=== PATIENT | male | born 1940 | race Caucasian/White ===

== ENCOUNTER 2021-05-20 13:10 | Inpatient (IN) | payer MEDICARE, BC ==
[2021-05-20] MEDS ORDERED: Aspirin 81 MG Tab.Chew PO ONE (13:20)
--- NOTE | 2021-05-20 13:57 | PCM.EKG ---
#1 Interpretation EKG Date: 05/20/21 Time: 13:51 Rhythm: NSR Rate (Beats/Min): 69 [place]: Normal P-Wave: Present QRS: Normal ST-T: Normal QT: Normal Comparison: No Change (10/11/15) EKG Interpretation Comments: Sinus Rhythm with unchanged lateral TWI
--- NOTE | 2021-05-20 13:58 | CR ---
CHEST 1 VIEW AP INDICATION: Seizure. IMPRESSION: Normal heart size and vascular pattern. Lungs are clear of focal opacities. No pneumothorax or pleural abnormality. Dictated by Shemar Bolanos MD @ 05/20/2021 1:56:50 PM (Electronically Signed)
[2021-05-20 14:18] LABS: BLOOD UREA NITROGEN,BUN 37 mg/dL (7.0-18.0); CHLORIDE,CL 99 mmol/L (98-107); GLUCOSE RANDOM 113 mg/dL (74-106); POTASSIUM,K 4.5 mmol/L (3.5-5.1); SODIUM,NA 133 mmol/L (136-148)
[2021-05-20] MEDS ORDERED: Magnesium Sulfate/Water 2 GM in Premix Bag 1 BAG IV ONE (14:24)
[2021-05-20 14:37] LABS: CORONAVIRUS COVID-19 NAA POSITIVE (NEGATIVE); INFLUENZA A NAA NEGATIVE (NEGATIVE); INFLUENZA B NAA NEGATIVE (NEGATIVE); RESPIRATORY SYNCYTIAL VIR NAA NEGATIVE (NEGATIVE)
[2021-05-20 14:37] LABS: CARBON DIOXIDE,CO2 22.5 mmol/L (21.0-32.0)
--- NOTE | 2021-05-20 15:11 | CT ---
INDICATION: syncope, possible seizure COMPARISON: none TECHNIQUE: A CT volumetric acquisition was performed of the brain without IV contrast. Please note that all CT scans at this facility use dose modulation, iterative reconstruction, and/or weight-based dosing when appropriate to reduce radiation dose to as low as reasonably achievable. FINDINGS: No intracranial hemorrhage, mass or mass effect. Mild generalized cortical atrophy. No hydrocephalus or midline shift incidental prominence of the calcified choroid plexus. Vascular calcifications. Mild bilateral sinus disease. No fracture. IMPRESSION: No acute intracranial pathology. Please note that all CT scans at this facility use dose modulation, iterative reconstruction, and/or weight-based dosing when appropriate to reduce radiation dose to as low as reasonably achievable. Dictated by Alex Brown MD @ 05/20/2021 3:09:40 PM (Electronically Signed)
--- NOTE | 2021-05-20 15:16 | EDM.PDOC ---
ED HPI GENERAL MEDICAL PROBLEM - General Chief Complaint: General Stated Complaint: EMS Time Seen by Provider: 05/20/21 13:16 - History of Present Illness INITIAL COMMENTS - FREE TEXT/NARRATIVE: CHIEF COMPLAINT(S): Fall HISTORY OF PRESENT ILLNESS: This is a 80-year-old man with a past medical history of benign vertigo, BPH, hyperlipidemia who comes to the emergency department with a chief complaint of fall. The patient states that he was walking out to his mailbox when he suddenly fell and felt dizzy. He denies any head injury or loss of consciousness. States that he fell onto his back but denies any back pain, urinary incontinence, saddle anesthesia, or bowel incontinence. He denies any preceding chest pain but states that over the last 1 week he has been feeling short of breath when walking. He denies any lower extremity edema, recent travel, recent surgery or prior history of DVT or PE. He denies any history of aortic aneurysm. He denies any history of COPD or asthma. His who is at bedside states that over the last week he has been having trouble with walking where he gets short of breath, appears pale and is having an intermittent cough which is productive of sputum. She states that he has not had any fever. The patient denies any other symptoms. Patient states that after the fall he was ambulatory. The at bedside stated that he appeared weak and was shaking a little bit but was alert during this time. REVIEW OF SYSTEMS: Constitutional: Denies fever, chills. Eyes: Denies eye pain Ears, Nose, Mouth, & Throat: Denies earache Cardiovascular: Positive for dizziness. Denies chest pain Respiratory: Positive for exertional dyspnea and productive cough Gastrointestinal: Denies Nausea, vomiting, diarrhea, hematochezia. Genitourinary: Denies hematuria Skin:Denies a rash MSK: Denies joint pain Neurological: Denies blurred vision, numbness, tingling, weakness Psychiatric: Denies depression PAST MEDICAL HISTORY: As per history of present illness and as reviewed below otherwise noncontributory. SURGICAL HISTORY: As per history of present illness and as reviewed below otherwise noncontributory. SOCIAL HISTORY: As per history of present illness and as reviewed below oth erwise noncontributory. FAMILY HISTORY: As per history of present illness and as reviewed below otherwise noncontributory. EXAMINATION OF ORGAN SYSTEMS/BODY AREAS: Constitutional: Blood pressure is 119/51, heart rate 78, respiratory rate 20 with an oxygen saturation of 93% on room air. Temperature 36.4 General: Elderly man who does not appear to be in acute distress Psychiatric: Appropriate mood and affect. Eyes: No scleral icterus or conjunctival erythema pupils are equal round and reactive to light. Extraocular movements intact. No vertical horizontal nystagmus. ENMT: Moist mucous membranes. No pharyngeal erythema no blood in the oropharynx. No missing or chipped teeth. No stridor, drooling, trismus cardiovascular: Regular, rate, and rhythm. No gallops, murmurs, or rubs. Jung ateral upper extremity pulses symmetric and intact. No peripheral edema. No JVD. Respiratory: Lungs clear to auscultation bilaterally. No wheezes, rales, or rhonchi. Gastrointestinal: Soft, non-tender, non-distended. Normoactive bowel sounds Genitourinary: No suprapubic tenderness Musculoskeletal: Normal range of motion. Skin: No lesions or abrasions. Neurological: Alert, GCS 15 MEDICAL DECISION MAKING AND COURSE IN THE ED WITH INTERPRETATION/REVIEW OF DIAGNOSTIC STUDIES: This is a 80-year-old man with a past medical history of benign vertigo, BPH, hyperlipidemia who comes to the emergency department after mechanical fall with 1 week of productive cough, exertional dyspnea who is borderline hypoxic on room air. At this time I did observe the patient in cardiac monitoring at this time did reveal sinus rhythm and pulse oximetry with good waveform was approximately 90% on room air. We will provide the patient with supplemental oxygenation. Given his history I did obtain a screening EKG which was unremarkable. At this time we will undergo a cardiac work-up. We will also obtain a CT head given that the patient is on Plavix. There is no overt signs of trauma on the patient's head however given the shaking we will also evaluate for tumor or mass. Given the hypoxia differential does include PE however this is lower on the differential. The patient is Covid vaccinated however it has been since September. We will obtain a Covid and influenza swab. We will obtain a CT angiogram of the chest to evaluate for pulmonary embolism and obtain a chest x-ray. DDx: Community-acquired pneumonia, COVID-19, ACS, pulmonary embolism Laboratory: CBC is unremarkable. INR is normal. CMP reveals elevated BUN at 37 and creatinine of 2.2 which is improved from prior. Hyponatremia at 133. There is also hypomagnesemia at 1.7 otherwise unremarkable. Troponin is negative. CPK is normal. TSH is normal. Covid is positive. Influenza and RSV are negative. Given the patient's GFR there is no ability to obtain a CT angiogram of the chest. Given the patient is Covid positive I do believe that his hypoxia and exertional dyspnea is likely secondary to this. We will cancel the CT angiogram. Patient has no other signs of PE including JVD or lower extremity edema. The radiological images were viewed by myself along with reading the report from the radiologist. Chest x-ray does not reveal an acute cardiopulmonary process. CT head without contrast does not reveal any acute intracranial abnormality. The patient was intermittently requiring supplemental oxygenation. At this time I did discuss admission with the patient. He was amenable to this plan. I contacted Dr. Garvin who accepted the patient for admission DISPOSITION: The patient sedated to the hospital in stable condition CONDITION: Fair PROCEDURES: Cardiac monitoring interpretation, pulse oximetry interpretation FINAL IMPRESSION(S)/DIAGNOSES: 1. Acute hypoxic respiratory failure requiring nasal cannula secondary to COVID-19 Critical Care Procedure Note Authorized and performed by: Papo Teixeira M.D. Critical Care Time: 40 minutes Due to a high probability of clinically significant, life threatening deterioration, the patient required my highest level of preparedness to intervene emergently and I personally spent this critical care time directly and personally managing the patient. This critical care time included obtaining a history, examining the patient, pulse oximetry; ordering and review of studies; arranging urgent treatment with development of a management plan; evaluation of a patients reponse to treatment; frequent assessment; and discussions with other providers. This critical care time was performed to assess and manage the high probability of imminent, life threatening deterioration that could result in multiorgan failure. It was exclusive of separate billable procedures and treating other patients. Please see MDM section and rest of the note for further information on patient assessment and treatment. Please see RESHMA section and rest of the note for further information on patient assessment and treatment. Papo Teixeira M.D. - Related Data Allergies Allergy/AdvReac Type Severity Reaction Status Date / Time No Known Allergies Allergy Verified 05/20/21 13:22 Home Meds: Home Meds Allopurinol [Zyloprim] 300 mg PO DAILY 10/11/15 [History] Clopidogrel [Plavix] 75 mg PO DAILY 10/11/15 [History] Cyanocobalamin (Vitamin B-12) [Vitamin B-12] 250 mcg PO DAILY 10/11/15 [History] Dextran 70/Hypromellose [Artificial Tears] 1 drop OP DAILY 10/11/15 [History] Gemfibrozil 600 mg PO BID 10/11/15 [History] Moexipril [Univasc] 7.5 mg PO ACBREAKFAST 10/11/15 [History] Multivitamin [Multi-Vitamin Daily] 1 each PO DAILY 10/11/15 [History] Tamsulosin [Flomax] 0.8 mg PO BEDTIME 10/11/15 [History] atorvaSTATin [Lipitor] 10 mg PO BEDTIME 10/11/15 [History] Metoprolol Succinate [Toprol Xl] 75 mg PO DAILY 05/20/21 [History] Albuterol/Ipratropium [Combivent Respimat] 1 gm INH Q6H PRN #1 inhaler 05/22/21 [Rx] Past Medical History HEENT History: Reports: Cataract Cardiovascular History: Reports: High Cholesterol, Hypertension Respiratory History: Reports: None Gastrointestinal History: Reports: GERD Genitourinary History: Reports: None Musculoskeletal History: Reports: Back Pain, Chronic Neurological History: Reports: None Psychiatric History: Reports: None Endocrine/Metabolic History: Reports: None Hematologic History: Reports: None Immunologic History: Reports: None Oncologic (Cancer) History: Reports: None Dermatologic History: Reports: None - Infectious Disease History Infectious Disease History: Reports: Chicken Pox, Measles, Mumps - Past Surgical History HEENT Surgical History: Reports: Cataract Surgery, Tonsillectomy Cardiovascular Surgical History: Reports: None GI Surgical History: Reports: Appendectomy Social & Family History - Family History Family Medical History: No Pertinent Family History - Tobacco Use Second Hand Smoke Exposure: No - Caffeine Use Caffeine Use: Reports: None - Recreational Drug Use Recreational Drug Use: No ED ROS GENERAL - Review of Systems Review Of Systems: See Below ED EXAM, GENERAL - Physical Exam Exam: See Below Course - Vital Signs Last Recorded V/S: Last Vital Signs Temp 36.2 C 05/22/21 08:22 Pulse 75 05/22/21 08:28 Resp 16 05/22/21 08:22 BP 146/78 H 05/22/21 08:28 Pulse Ox 95 05/22/21 08:22 - Orders/Labs/Meds Labs: Laboratory Tests 05/20/21 05/20/21 05/20/21 Range/Units 13:30 13:38 13:38 WBC 4.56 (4.0-11.0) K/uL RBC 3.87 L (4.50-5.90) M/uL Hgb 13.2 (13.0-17.0) g/dL Hct 38.4 (38.0-50.0) % MCV 99.2 H (80.0-98.0) fL MCH 34.1 H (27.0-32.0) pg MCHC 34.4 (31.0-37.0) g/dL RDW Std Deviation 49.1 (28.0-62.0) fl RDW Coeff of Giovanni 14 (11.0-15.0) % Plt Count 146 L (150-400) K/uL MPV 10.90 (7.40-12.00) fL Neut % (Auto) 80.1 H (48.0-80.0) % Lymph % (Auto) 11.8 L (16.0-40.0) % Villalba % (Auto) 7.9 (0.0-15.0) % Eos % (Auto) 0.0 (0.0-7.0) % Baso % (Auto) 0.2 (0.0-1.5) % Neut # (Auto) 3.7 (1.4-5.7) K/uL Lymph # (Auto) 0.5 L (0.6-2.4) K/uL Villalba # (Auto) 0.4 (0.0-0.8) K/uL Eos # (Auto) 0.0 (0.0-0.7) K/uL Baso # (Auto) 0.0 (0.0-0.1) K/uL Nucleated RBC % 0.0 /100WBC Nucleated RBCs # 0 K/uL ESR (0-19) mm/hr INR 1.07 Sodium (136-148) mmol/L Potassium (3.5-5.1) mmol/L Chloride (98-107) mmol/L Carbon Dioxide (21.0-32.0) mmol/L BUN (7.0-18.0) mg/dL Creatinine (0.8-1.3) mg/dL Est Cr Clr Drug Dosing mL/min Estimated GFR (MDRD) ml/min Glucose (74-106) mg/dL Lactic Acid (0.4-2.0) mmol/L Calcium (8.5-10.1) mg/dL Magnesium (1.8-2.4) mg/dL Total Bilirubin (0.2-1.0) mg/dL AST (15-37) IU/L ALT (14-63) IU/L Alkaline Phosphatase (46-116) U/L Creatine Kinase (26-308) U/L Troponin I (0.000-0.056) ng/mL C-Reactive Protein (0.00-0.90) mg/dL Total Protein (6.4-8.2) g/dL Albumin (3.4-5.0) g/dL Globulin (2.6-4.0) g/dL Albumin/Globulin Ratio (0.9-1.6) TSH, Ultra Sensitive (0.36-3.74) uIU/mL Urine Color Urine Appearance Urine pH (5.0-8.0) Ur Specific Christmas (1.001-1.035) Urine Protein (NEGATIVE) mg/dL Urine Glucose (UA) (NEGATIVE) mg/dL Urine Ketones (NEGATIVE) mg/dL Urine Occult Blood (NEGATIVE) Urine Nitrite (NEGATIVE) Urine Bilirubin (NEGATIVE) Urine Urobilinogen (<2.0) EU/dL Ur Leukocyte Esterase (NEGATIVE) Urine RBC (0-2/HPF) Urine WBC (0-5/HPF) Ur Epithelial Cells (NONE-FEW) Urine Bacteria (NEGATIVE) Ethyl Alcohol mg/dL Influenza Type A RNA NEGATIVE (NEGATIVE) RSV RNA (INAAT) NEGATIVE (NEGATIVE) Influenza Type B RNA NEGATIVE (NEGATIVE) SARS-CoV-2 RNA (ESTEFANÍA) POSITIVE H (NEGATIVE) 05/20/21 05/20/21 05/20/21 Range/Units 13:38 13:38 13:38 WBC (4.0-11.0) K/uL RBC (4.50-5.90) M/uL Hgb (13.0-17.0) g/dL Hct (38.0-50.0) % MCV (80.0-98.0) fL MCH (27.0-32.0) pg MCHC (31.0-37.0) g/dL RDW Std Deviation (28.0-62.0) fl RDW Coeff of Giovanni (11.0-15.0) % Plt Count (150-400) K/uL MPV (7.40-12.00) fL Neut % (Auto) (48.0-80.0) % Lymph % (Auto) (16.0-40.0) % Villalba % (Auto) (0.0-15.0) % Eos % (Auto) (0.0-7.0) % Baso % (Auto) (0.0-1.5) % Neut # (Auto) (1.4-5.7) K/uL Lymph # (Auto) (0.6-2.4) K/uL Villalba # (Auto) (0.0-0.8) K/uL Eos # (Auto) (0.0-0.7) K/uL Baso # (Auto) (0.0-0.1) K/uL Nucleated RBC % /100WBC Nucleated RBCs # K/uL ESR 37 H (0-19) mm/hr INR Sodium 133 L (136-148) mmol/L Potassium 4.5 (3.5-5.1) mmol/L Chloride 99 (98-107) mmol/L Carbon Dioxide 22.5 (21.0-32.0) mmol/L BUN 37 H (7.0-18.0) mg/dL Creatinine 2.2 H (0.8-1.3) mg/dL Est Cr Clr Drug Dosing 25.05 mL/min Estimated GFR (MDRD) 28.8 ml/min Glucose 113 H (74-106) mg/dL Lactic Acid 0.7 (0.4-2.0) mmol/L Calcium 8.7 (8.5-10.1) mg/dL Magnesium 1.7 L (1.8-2.4) mg/dL Total Bilirubin 0.5 (0.2-1.0) mg/dL AST 29 (15-37) IU/L ALT 22 (14-63) IU/L Alkaline Phosphatase 81 (46-116) U/L Creatine Kinase 79 (26-308) U/L Troponin I < 0.050 (0.000-0.056) ng/mL C-Reactive Protein (0.00-0.90) mg/dL Total Protein 7.3 (6.4-8.2) g/dL Albumin 3.1 L (3.4-5.0) g/dL Globulin 4.2 H (2.6-4.0) g/dL Albumin/Globulin Ratio 0.7 L (0.9-1.6) TSH, Ultra Sensitive 0.75 (0.36-3.74) uIU/mL Urine Color Urine Appearance Urine pH (5.0-8.0) Ur Specific Christmas (1.001-1.035) Urine Protein (NEGATIVE) mg/dL Urine Glucose (UA) (NEGATIVE) mg/dL Urine Ketones (NEGATIVE) mg/dL Urine Occult Blood (NEGATIVE) Urine Nitrite (NEGATIVE) Urine Bilirubin (NEGATIVE) Urine Urobilinogen (<2.0) EU/dL Ur Leukocyte Esterase (NEGATIVE) Urine RBC (0-2/HPF) Urine WBC (0-5/HPF) Ur Epithelial Cells (NONE-FEW) Urine Bacteria (NEGATIVE) Ethyl Alcohol < 3.0 mg/dL Influenza Type A RNA (NEGATIVE) RSV RNA (INAAT) (NEGATIVE) Influenza Type B RNA (NEGATIVE) SARS-CoV-2 RNA (ESTEFANÍA) (NEGATIVE) 05/20/21 05/20/21 Range/Units 13:38 13:52 WBC (4.0-11.0) K/uL RBC (4.50-5.90) M/uL Hgb (13.0-17.0) g/dL Hct (38.0-50.0) % MCV (80.0-98.0) fL MCH (27.0-32.0) pg MCHC (31.0-37.0) g/dL RDW Std Deviation (28.0-62.0) fl RDW Coeff of Giovanni (11.0-15.0) % Plt Count (150-400) K/uL MPV (7.40-12.00) fL Neut % (Auto) (48.0-80.0) % Lymph % (Auto) (16.0-40.0) % Villalba % (Auto) (0.0-15.0) % Eos % (Auto) (0.0-7.0) % Baso % (Auto) (0.0-1.5) % Neut # (Auto) (1.4-5.7) K/uL Lymph # (Auto) (0.6-2.4) K/uL Villalba # (Auto) (0.0-0.8) K/uL Eos # (Auto) (0.0-0.7) K/uL Baso # (Auto) (0.0-0.1) K/uL Nucleated RBC % /100WBC Nucleated RBCs # K/uL ESR (0-19) mm/hr INR Sodium (136-148) mmol/L Potassium (3.5-5.1) mmol/L Chloride (98-107) mmol/L Carbon Dioxide (21.0-32.0) mmol/L BUN (7.0-18.0) mg/dL Creatinine (0.8-1.3) mg/dL Est Cr Clr Drug Dosing mL/min Estimated GFR (MDRD) ml/min Glucose (74-106) mg/dL Lactic Acid (0.4-2.0) mmol/L Calcium (8.5-10.1) mg/dL Magnesium (1.8-2.4) mg/dL Total Bilirubin (0.2-1.0) mg/dL AST (15-37) IU/L ALT (14-63) IU/L Alkaline Phosphatase (46-116) U/L Creatine Kinase (26-308) U/L Troponin I (0.000-0.056) ng/mL C-Reactive Protein 7.90 H (0.00-0.90) mg/dL Total Protein (6.4-8.2) g/dL Albumin (3.4-5.0) g/dL Globulin (2.6-4.0) g/dL Albumin/Globulin Ratio (0.9-1.6) TSH, Ultra Sensitive (0.36-3.74) uIU/mL Urine Color YELLOW Urine Appearance HAZY Urine pH 6.0 (5.0-8.0) Ur Specific Christmas 1.020 (1.001-1.035) Urine Protein TRACE H (NEGATIVE) mg/dL Urine Glucose (UA) NEGATIVE (NEGATIVE) mg/dL Urine Ketones NEGATIVE (NEGATIVE) mg/dL Urine Occult Blood TRACE-INTACT H (NEGATIVE) Urine Nitrite NEGATIVE (NEGATIVE) Urine Bilirubin SMALL H (NEGATIVE) Urine Urobilinogen 0.2 (<2.0) EU/dL Ur Leukocyte Esterase NEGATIVE (NEGATIVE) Urine RBC 0-2 (0-2/HPF) Urine WBC 0-1 (0-5/HPF) Ur Epithelial Cells RARE (NONE-FEW) Urine Bacteria FEW (NEGATIVE) Ethyl Alcohol mg/dL Influenza Type A RNA (NEGATIVE) RSV RNA (INAAT) (NEGATIVE) Influenza Type B RNA (NEGATIVE) SARS-CoV-2 RNA (ESTEFANÍA) (NEGATIVE) Meds: Medications Discontinued Medications Generic Name Dose Route Start Last Admin Trade Name Freq PRN Reason Stop Dose Admin Albuterol/Ipratropium 1 gm 05/20/21 20:49 05/21/21 13:34 Albuterol/Ipratropium 4 Gm Inhalation [place] INH 1 puff Q6H PRN Administration Dyspnea Allopurinol 300 mg 05/21/21 09:00 05/22/21 08:26 Allopurinol 300 Mg Tab PO 300 mg DAILY LILIANA Administration Aspirin 324 mg 05/20/21 13:20 05/20/21 14:07 Aspirin 81 Mg Tab.Chew PO 05/20/21 13:21 324 mg ONETIME ONE Administration Atorvastatin Calcium 10 mg 05/20/21 21:00 05/21/21 20:39 Atorvastatin 10 Mg Tab PO 10 mg BEDTIME LILIANA Administration Benzonatate 100 mg 05/20/21 20:50 05/21/21 13:32 Benzonatate 100 Mg Cap PO 100 mg Q6H PRN Administration Cough Calcium Carbonate/Glycine 1,000 mg 05/21/21 04:18 Calcium Carbonate 500 Mg Tab.Chew PO Q8HR PRN Indigestion Clopidogrel Bisulfate 75 mg 05/21/21 09:00 05/22/21 08:26 Clopidogrel 75 Mg Tab PO 75 mg DAILY LILIANA Administration Dexamethasone 6 mg 05/20/21 15:34 05/20/21 15:51 Dexamethasone 4 Mg Tab PO 05/20/21 15:35 6 mg ONETIME ONE Administration Dexamethasone 6 mg 05/21/21 16:30 05/21/21 16:37 Dexamethasone 4 Mg Tab PO 6 mg Q24H LILIANA Administration Enoxaparin Sodium 40 mg 05/20/21 16:30 05/21/21 16:37 Enoxaparin 40 Mg/0.4 Ml Syringe SUBCUT 40 mg Q24H LILIANA Administration Gemfibrozil 600 mg 05/20/21 21:00 05/22/21 08:27 Gemfibrozil 600 Mg Tab PO 600 mg BID LILIANA Administration Magnesium Sulfate 2 gm/ Premix 50 mls @ 12.5 mls/hr 05/20/21 14:24 05/20/21 14:47 IV 05/20/21 18:23 12.5 mls/hr ONETIME ONE Administration Remdesivir 200 mg/ Sodium 250 mls @ 250 mls/hr 05/20/21 15:35 05/20/21 16:26 Chloride IV 05/20/21 15:36 250 mls/hr ONETIME ONE Administration Remdesivir 100 mg/ Sodium 100 mls @ 100 mls/hr 05/21/21 16:30 05/21/21 16:37 Chloride IV 05/24/21 17:29 100 mls/hr Q24H LILIANA Administration Metoprolol Succinate 75 mg 05/21/21 09:00 05/22/21 08:28 Metoprolol Succinate 50 Mg Tab.Er PO 75 mg DAILY LILIANA Administration Moexipril HCl 7.5 mg 05/21/21 07:30 05/22/21 07:00 Moexipril 15 Mg Tab PO 7.5 mg ACBREAKFAST LILIANA Administration Multivitamins/Minerals/Vitamin C 1 tab 05/21/21 09:00 05/22/21 08:29 Multivitamin Tab PO Not Given DAILY LILIANA Tamsulosin HCl 0.8 mg 05/20/21 21:00 05/21/21 20:39 Tamsulosin 0.4 Mg Cap.Er PO 0.8 mg BEDTIME LILIANA Administration Departure - Departure Time of Disposition: 15:50 Disposition: Admitted As Inpatient 64 Clinical Impression: Hypoxia, COVID - Discharge Information Sepsis Event Note (ED) - Evaluation Sepsis Screening Result: No Definite Risk
[2021-05-20] MEDS ORDERED: Dexamethasone 4 MG Tab PO ONE (15:34)
[2021-05-20] MEDS ORDERED: REMDESIVIR 200 MG in Sodium Chloride 0.9% 250 ML IV ONE (15:35)
--- NOTE | 2021-05-20 16:29 | PCM.HP.2 ---
H&P History of Present Illness - General Date of Service: 05/20/21 Admit Problem/Dx: Admission Diagnosis/Problem Admission Diagnosis/Problem Hypoxia - History of Present Illness Initial Comments - Free Text/Narative: 80 yo male with pmh of CKD, HTN, carotid artery stenosis who presents with one week history of cough and shortness of breath. Patient has reported more fatigue and he fell at home. He reports receiving th Ata and Ata vaccine in December. He is requiring 2 L NC to keep sats above 90%. He tested positive for COVID. CXR is clear. - Related Data Allergies/Adverse Reactions: Allergies Allergy/AdvReac Type Severity Reaction Status Date / Time No Known Allergies Allergy Verified 05/20/21 13:22 Home Medications: Home Meds Allopurinol [Zyloprim] 300 mg PO DAILY 10/11/15 [History] Aspirin [Halfprin] 81 mg PO ONETIME 10/11/15 [History] Clopidogrel [Plavix] 75 mg PO DAILY 10/11/15 [History] Cyanocobalamin (Vitamin B-12) [Vitamin B-12] 250 mcg PO DAILY 10/11/15 [History] Dextran 70/Hypromellose [Artificial Tears] 15 ml OP DAILY 10/11/15 [History] Gemfibrozil 600 mg PO DAILY 10/11/15 [History] Metoprolol Tartrate [Lopressor] 50 mg PO DAILY 10/11/15 [History] Moexipril [Univasc] 15 mg PO ACBREAKFAST 10/11/15 [History] Multivitamin [Multi-Vitamin Daily] 1 each PO DAILY 10/11/15 [History] Tamsulosin [Flomax] 0.4 mg PO ONETIME 10/11/15 [History] atorvaSTATin [Lipitor] 10 mg PO BEDTIME 10/11/15 [History] Past Medical History HEENT History: Reports: Cataract Cardiovascular History: Reports: High Cholesterol, Hypertension Respiratory History: Reports: None Gastrointestinal History: Reports: GERD Genitourinary History: Reports: None Musculoskeletal History: Reports: Back Pain, Chronic Neurological History: Reports: None Psychiatric History: Reports: None Endocrine/Metabolic History: Reports: None Hematologic History: Reports: None Immunologic History: Reports: None Oncologic (Cancer) History: Reports: None Dermatologic History: Reports: None - Infectious Disease History Infectious Disease History: Reports: Chicken Pox, Measles, Mumps - Past Surgical History HEENT Surgical History: Reports: Cataract Surgery, Tonsillectomy Cardiovascular Surgical History: Reports: None GI Surgical History: Reports: Appendectomy Social & Family History - Family History Family Medical History: No Pertinent Family History - Tobacco Use Second Hand Smoke Exposure: No - Caffeine Use Caffeine Use: Reports: None - Recreational Drug Use Recreational Drug Use: No H&P Review of Systems - Review of Systems: Review Of Systems: Comprehensive ROS is negative, except as noted in HPI. Exam - Exam Exam: See Below - Vital Signs Vital Signs: Last Vital Signs Temp 36.4 C 05/20/21 13:18 Pulse 67 05/20/21 15:39 Resp 16 05/20/21 15:39 BP 103/52 L 05/20/21 15:39 Pulse Ox 95 05/20/21 15:39 Weight: 78.018 kg - Exam General: Alert, Oriented HEENT: Mucosa Moist & [place] Lungs: Clear to Auscultation, Normal Respiratory Effort Cardiovascular: Regular Rate, Regular Rhythm GI/Abdominal Exam: Normal Bowel Sounds, Soft, Non-Tender Extremities: Non-Tender, No Pedal Edema Skin: Warm, Dry, Intact Neurological: No: Focal Deficit - Patient Data Lab Results Last 24 hrs: Laboratory Results - last 24 hr 05/20/21 05/20/21 05/20/21 Range/Units 13:30 13:38 13:38 WBC 4.56 (4.0-11.0) K/uL RBC 3.87 L (4.50-5.90) M/uL Hgb 13.2 (13.0-17.0) g/dL Hct 38.4 (38.0-50.0) % MCV 99.2 H (80.0-98.0) fL MCH 34.1 H (27.0-32.0) pg MCHC 34.4 (31.0-37.0) g/dL RDW Std Deviation 49.1 (28.0-62.0) fl RDW Coeff of Giovanni 14 (11.0-15.0) % Plt Count 146 L (150-400) K/uL MPV 10.90 (7.40-12.00) fL Neut % (Auto) 80.1 H (48.0-80.0) % Lymph % (Auto) 11.8 L (16.0-40.0) % [place] % (Auto) 7.9 (0.0-15.0) % Eos % (Auto) 0.0 (0.0-7.0) % Baso % (Auto) 0.2 (0.0-1.5) % Neut # (Auto) 3.7 (1.4-5.7) K/uL Lymph # (Auto) 0.5 L (0.6-2.4) K/uL [place] # (Auto) 0.4 (0.0-0.8) K/uL Eos # (Auto) 0.0 (0.0-0.7) K/uL Baso # (Auto) 0.0 (0.0-0.1) K/uL Nucleated RBC % 0.0 /100WBC Nucleated RBCs # 0 K/uL ESR (0-19) mm/hr INR 1.07 Sodium (136-148) mmol/L Potassium (3.5-5.1) mmol/L Chloride (98-107) mmol/L Carbon Dioxide (21.0-32.0) mmol/L BUN (7.0-18.0) mg/dL Creatinine (0.8-1.3) mg/dL Est Cr Clr Drug Dosing mL/min Estimated GFR (MDRD) ml/min Glucose (74-106) mg/dL Lactic Acid (0.4-2.0) mmol/L Calcium (8.5-10.1) mg/dL Magnesium (1.8-2.4) mg/dL Total Bilirubin (0.2-1.0) mg/dL AST (15-37) IU/L ALT (14-63) IU/L Alkaline Phosphatase (46-116) U/L Creatine Kinase (26-308) U/L Troponin I (0.000-0.056) ng/mL C-Reactive Protein (0.00-0.90) mg/dL Total Protein (6.4-8.2) g/dL Albumin (3.4-5.0) g/dL Globulin (2.6-4.0) g/dL Albumin/Globulin Ratio (0.9-1.6) TSH, Ultra Sensitive (0.36-3.74) uIU/mL Ethyl Alcohol mg/dL Influenza Type A RNA NEGATIVE (NEGATIVE) RSV RNA (INAAT) NEGATIVE (NEGATIVE) Influenza Type B RNA NEGATIVE (NEGATIVE) SARS-CoV-2 RNA (ESTEFANÍA) POSITIVE H (NEGATIVE) 05/20/21 05/20/21 05/20/21 Range/Units 13:38 13:38 13:38 WBC (4.0-11.0) K/uL RBC (4.50-5.90) M/uL Hgb (13.0-17.0) g/dL Hct (38.0-50.0) % MCV (80.0-98.0) fL MCH (27.0-32.0) pg MCHC (31.0-37.0) g/dL RDW Std Deviation (28.0-62.0) fl RDW Coeff of Giovanni (11.0-15.0) % Plt Count (150-400) K/uL MPV (7.40-12.00) fL Neut % (Auto) (48.0-80.0) % Lymph % (Auto) (16.0-40.0) % [place] % (Auto) (0.0-15.0) % Eos % (Auto) (0.0-7.0) % Baso % (Auto) (0.0-1.5) % Neut # (Auto) (1.4-5.7) K/uL Lymph # (Auto) (0.6-2.4) K/uL [place] # (Auto) (0.0-0.8) K/uL Eos # (Auto) (0.0-0.7) K/uL Baso # (Auto) (0.0-0.1) K/uL Nucleated RBC % /100WBC Nucleated RBCs # K/uL ESR 37 H (0-19) mm/hr INR Sodium 133 L (136-148) mmol/L Potassium 4.5 (3.5-5.1) mmol/L Chloride 99 (98-107) mmol/L Carbon Dioxide 22.5 (21.0-32.0) mmol/L BUN 37 H (7.0-18.0) mg/dL Creatinine 2.2 H (0.8-1.3) mg/dL Est Cr Clr Drug Dosing 25.05 mL/min Estimated GFR (MDRD) 28.8 ml/min Glucose 113 H (74-106) mg/dL Lactic Acid 0.7 (0.4-2.0) mmol/L Calcium 8.7 (8.5-10.1) mg/dL Magnesium 1.7 L (1.8-2.4) mg/dL Total Bilirubin 0.5 (0.2-1.0) mg/dL AST 29 (15-37) IU/L ALT 22 (14-63) IU/L Alkaline Phosphatase 81 (46-116) U/L Creatine Kinase 79 (26-308) U/L Troponin I < 0.050 (0.000-0.056) ng/mL C-Reactive Protein (0.00-0.90) mg/dL Total Protein 7.3 (6.4-8.2) g/dL Albumin 3.1 L (3.4-5.0) g/dL Globulin 4.2 H (2.6-4.0) g/dL Albumin/Globulin Ratio 0.7 L (0.9-1.6) TSH, Ultra Sensitive 0.75 (0.36-3.74) uIU/mL Ethyl Alcohol < 3.0 mg/dL Influenza Type A RNA (NEGATIVE) RSV RNA (INAAT) (NEGATIVE) Influenza Type B RNA (NEGATIVE) SARS-CoV-2 RNA (ESTEFANÍA) (NEGATIVE) 05/20/21 Range/Units 13:38 WBC (4.0-11.0) K/uL RBC (4.50-5.90) M/uL Hgb (13.0-17.0) g/dL Hct (38.0-50.0) % MCV (80.0-98.0) fL MCH (27.0-32.0) pg MCHC (31.0-37.0) g/dL RDW Std Deviation (28.0-62.0) fl RDW Coeff of Giovanni (11.0-15.0) % Plt Count (150-400) K/uL MPV (7.40-12.00) fL Neut % (Auto) (48.0-80.0) % Lymph % (Auto) (16.0-40.0) % [place] % (Auto) (0.0-15.0) % Eos % (Auto) (0.0-7.0) % Baso % (Auto) (0.0-1.5) % Neut # (Auto) (1.4-5.7) K/uL Lymph # (Auto) (0.6-2.4) K/uL [place] # (Auto) (0.0-0.8) K/uL Eos # (Auto) (0.0-0.7) K/uL Baso # (Auto) (0.0-0.1) K/uL Nucleated RBC % /100WBC Nucleated RBCs # K/uL ESR (0-19) mm/hr INR Sodium (136-148) mmol/L Potassium (3.5-5.1) mmol/L Chloride (98-107) mmol/L Carbon Dioxide (21.0-32.0) mmol/L BUN (7.0-18.0) mg/dL Creatinine (0.8-1.3) mg/dL Est Cr Clr Drug Dosing mL/min Estimated GFR (MDRD) ml/min Glucose (74-106) mg/dL Lactic Acid (0.4-2.0) mmol/L Calcium (8.5-10.1) mg/dL Magnesium (1.8-2.4) mg/dL Total Bilirubin (0.2-1.0) mg/dL AST (15-37) IU/L ALT (14-63) IU/L Alkaline Phosphatase (46-116) U/L Creatine Kinase (26-308) U/L Troponin I (0.000-0.056) ng/mL C-Reactive Protein 7.90 H (0.00-0.90) mg/dL Total Protein (6.4-8.2) g/dL Albumin (3.4-5.0) g/dL Globulin (2.6-4.0) g/dL Albumin/Globulin Ratio (0.9-1.6) TSH, Ultra Sensitive (0.36-3.74) uIU/mL Ethyl Alcohol mg/dL Influenza Type A RNA (NEGATIVE) RSV RNA (INAAT) (NEGATIVE) Influenza Type B RNA (NEGATIVE) SARS-CoV-2 RNA (ESTEFANÍA) (NEGATIVE) Result Diagrams: 05/20/21 13:38 05/20/21 13:38 Sepsis Event Note - Evaluation Sepsis Screening Result: No Definite Risk - Focused Exam Vital Signs: Vital Signs Temp Pulse Resp BP Pulse Ox 05/20/21 15:39 67 16 103/52 L 95 05/20/21 14:23 67 16 95 05/20/21 13:18 36.4 C 78 20 119/51 L 93 L - Problem List (1) COVID SNOMED Code(s): 985468129 ICD Code: U07.1 - COVID-19 Status: Acute Current Visit: Yes (2) Hypoxia SNOMED Code(s): 673914061 ICD Code: R09.02 - HYPOXEMIA Status: Acute Current Visit: Yes Problem List Initiated/Reviewed/Updated: Yes Orders Last 24hrs: Active Orders 24 hr Category Date Time Status Admission Status [Patient Status] [ADT] Stat ADT 05/20/21 15:50 Active Antiembolic Devices [RC] PER UNIT ROUTINE Care 05/20/21 16:25 Ordered Cardiac Monitoring [RC] . DIRECTED Care 05/20/21 13:20 Active Oxygen Therapy [RC] PRN Care 05/20/21 16:25 Ordered Pulse Oximetry [RC] ASDIRECTED Care 05/20/21 13:20 Active VTE/DVT Education [RC] PER UNIT ROUTINE Care 05/20/21 16:25 Ordered Vital Signs [RC] Q4H Care 05/20/21 16:25 Ordered Regular Diet [DIET] Diet 05/20/21 Breakfast Ordered Ang Chest [CT] Stat Exams 05/20/21 13:22 Stop Req CBC WITH AUTO DIFF [HEME] AM Lab 05/21/21 05:11 Ordered CBC WITH AUTO DIFF [HEME] AM Lab 05/22/21 05:11 Ordered CBC WITH AUTO DIFF [HEME] AM Lab 05/23/21 05:11 Ordered CBC WITH AUTO DIFF [HEME] AM Lab 05/24/21 05:11 Ordered COMPREHENSIVE METABOLIC PN,CMP [CHEM] AM Lab 05/21/21 05:11 Ordered COMPREHENSIVE METABOLIC PN,CMP [CHEM] AM Lab 05/22/21 05:11 Ordered COMPREHENSIVE METABOLIC PN,CMP [CHEM] AM Lab 05/23/21 05:11 Ordered COMPREHENSIVE METABOLIC PN,CMP [CHEM] AM Lab 05/24/21 05:11 Ordered UA W/ABHI RFLX IF INDICATED [URIN] Stat Lab 05/20/21 13:21 Ordered Enoxaparin [Lovenox] Med 05/20/21 16:30 Ordered 40 mg SUBCUT Q24H Magnesium Sulfate/Water [Magnesium Sulfate in Water 2 Med 05/20/21 14:24 Active GM/50 ML] 2 gm Premix Bag 1 bag IV ONETIME Remdesivir 100 mg Med 05/21/21 16:30 Ordered Sodium Chloride 0.9% [Normal Saline AdvBag] 100 ml IV Q24H dexAMETHasone Med 05/21/21 16:30 Ordered 6 mg PO Q24H Sequential Compression Device [OM.PC] Per Unit Routine Oth 05/20/21 16:25 Ordered Resuscitation Status Routine Resus Stat 05/20/21 16:25 Ordered Medication Orders Dexamethasone (Dexamethasone 4 Mg Tab) 6 mg PO Q24H LILIANA Magnesium Sulfate 2 gm/ Premix 50 mls @ 12.5 mls/hr IV ONETIME ONE Stop: 05/20/21 18:23 Last Admin: 05/20/21 14:47 Dose: 12.5 mls/hr Documented by: DARRON Remdesivir 100 mg/ Sodium (Chloride) 100 mls @ 100 mls/hr IV Q24H LILIANA Stop: 05/24/21 17:29 Assessment/Plan Comment:: 80 yo male admitted for COVID with hypoxia Hypoxia: on 2 L NC COVID: treating with remdesivir and dexamethason lovenox for DVT prophylaxis
[2021-05-20] MEDS: Enoxaparin 40 MG/0.4 ML Syringe SUBCUT SCH (18:43)
[2021-05-20] MEDS: Gemfibrozil 600 MG Tab PO SCH (21:15)
[2021-05-20] MEDS: Tamsulosin 0.4 MG Cap.ER PO SCH (21:15)
[2021-05-20] MEDS: atorvaSTATin 10 MG Tab PO SCH (21:15)
[2021-05-21] MEDS ORDERED: Calcium Carbonate 500 MG Tab.Chew PO PRN (04:18)
[2021-05-21] MEDS: Benzonatate 100 MG Cap PO PRN ×2 (04:33→13:32)
[2021-05-21] MEDS: Albuterol/Ipratropium 4 GM Inhalation Spray INH PRN ×2 (04:33→13:34)
--- NOTE | 2021-05-21 07:50 | PCM.PN ---
- General Info Date of Service: 05/21/21 - Review of Systems Systems Review Comment:: shortness of breath and cough has improved - Patient Data Vitals - Most Recent: Last Vital Signs Temp 36.3 C 05/21/21 04:00 Pulse 70 05/21/21 04:00 Resp 19 05/21/21 04:00 BP 131/66 05/21/21 04:00 Pulse Ox 92 L 05/21/21 04:00 Weight - Most Recent: 82.236 kg I&O - Last 24 Hours: Intake & Output 05/20/21 05/21/21 05/21/21 22:59 06:59 14:59 Intake Total 500 Output Total 1250 Balance -750 Lab Results Last 24 Hours: Laboratory Results - last 24 hr 05/20/21 05/20/21 05/20/21 Range/Units 13:30 13:38 13:38 WBC 4.56 (4.0-11.0) K/uL RBC 3.87 L (4.50-5.90) M/uL Hgb 13.2 (13.0-17.0) g/dL Hct 38.4 (38.0-50.0) % MCV 99.2 H (80.0-98.0) fL MCH 34.1 H (27.0-32.0) pg MCHC 34.4 (31.0-37.0) g/dL RDW Std Deviation 49.1 (28.0-62.0) fl RDW Coeff of Giovanni 14 (11.0-15.0) % Plt Count 146 L (150-400) K/uL MPV 10.90 (7.40-12.00) fL Neut % (Auto) 80.1 H (48.0-80.0) % Lymph % (Auto) 11.8 L (16.0-40.0) % [place] % (Auto) 7.9 (0.0-15.0) % Eos % (Auto) 0.0 (0.0-7.0) % Baso % (Auto) 0.2 (0.0-1.5) % Neut # (Auto) 3.7 (1.4-5.7) K/uL Lymph # (Auto) 0.5 L (0.6-2.4) K/uL [place] # (Auto) 0.4 (0.0-0.8) K/uL Eos # (Auto) 0.0 (0.0-0.7) K/uL Baso # (Auto) 0.0 (0.0-0.1) K/uL Nucleated RBC % 0.0 /100WBC Nucleated RBCs # 0 K/uL ESR (0-19) mm/hr INR 1.07 Sodium (136-148) mmol/L Potassium (3.5-5.1) mmol/L Chloride (98-107) mmol/L Carbon Dioxide (21.0-32.0) mmol/L BUN (7.0-18.0) mg/dL Creatinine (0.8-1.3) mg/dL Est Cr Clr Drug Dosing mL/min Estimated GFR (MDRD) ml/min Glucose (74-106) mg/dL Lactic Acid (0.4-2.0) mmol/L Calcium (8.5-10.1) mg/dL Magnesium (1.8-2.4) mg/dL Total Bilirubin (0.2-1.0) mg/dL AST (15-37) IU/L ALT (14-63) IU/L Alkaline Phosphatase (46-116) U/L Creatine Kinase (26-308) U/L Troponin I (0.000-0.056) ng/mL C-Reactive Protein (0.00-0.90) mg/dL Total Protein (6.4-8.2) g/dL Albumin (3.4-5.0) g/dL Globulin (2.6-4.0) g/dL Albumin/Globulin Ratio (0.9-1.6) TSH, Ultra Sensitive (0.36-3.74) uIU/mL Urine Color Urine Appearance Urine pH (5.0-8.0) Ur Specific [place] (1.001-1.035) Urine Protein (NEGATIVE) mg/dL Urine Glucose (UA) (NEGATIVE) mg/dL Urine Ketones (NEGATIVE) mg/dL Urine Occult Blood (NEGATIVE) Urine Nitrite (NEGATIVE) Urine Bilirubin (NEGATIVE) Urine Urobilinogen (<2.0) EU/dL Ur Leukocyte Esterase (NEGATIVE) Urine RBC (0-2/HPF) Urine WBC (0-5/HPF) Ur Epithelial Cells (NONE-FEW) Urine Bacteria (NEGATIVE) Ethyl Alcohol mg/dL Influenza Type A RNA NEGATIVE (NEGATIVE) RSV RNA (INAAT) NEGATIVE (NEGATIVE) Influenza Type B RNA NEGATIVE (NEGATIVE) SARS-CoV-2 RNA (ESTEFANÍA) POSITIVE H (NEGATIVE) 05/20/21 05/20/21 05/20/21 Range/Units 13:38 13:38 13:38 WBC (4.0-11.0) K/uL RBC (4.50-5.90) M/uL Hgb (13.0-17.0) g/dL Hct (38.0-50.0) % MCV (80.0-98.0) fL MCH (27.0-32.0) pg MCHC (31.0-37.0) g/dL RDW Std Deviation (28.0-62.0) fl RDW Coeff of Giovanni (11.0-15.0) % Plt Count (150-400) K/uL MPV (7.40-12.00) fL Neut % (Auto) (48.0-80.0) % Lymph % (Auto) (16.0-40.0) % [place] % (Auto) (0.0-15.0) % Eos % (Auto) (0.0-7.0) % Baso % (Auto) (0.0-1.5) % Neut # (Auto) (1.4-5.7) K/uL Lymph # (Auto) (0.6-2.4) K/uL [place] # (Auto) (0.0-0.8) K/uL Eos # (Auto) (0.0-0.7) K/uL Baso # (Auto) (0.0-0.1) K/uL Nucleated RBC % /100WBC Nucleated RBCs # K/uL ESR 37 H (0-19) mm/hr INR Sodium 133 L (136-148) mmol/L Potassium 4.5 (3.5-5.1) mmol/L Chloride 99 (98-107) mmol/L Carbon Dioxide 22.5 (21.0-32.0) mmol/L BUN 37 H (7.0-18.0) mg/dL Creatinine 2.2 H (0.8-1.3) mg/dL Est Cr Clr Drug Dosing 25.05 mL/min Estimated GFR (MDRD) 28.8 ml/min Glucose 113 H (74-106) mg/dL Lactic Acid 0.7 (0.4-2.0) mmol/L Calcium 8.7 (8.5-10.1) mg/dL Magnesium 1.7 L (1.8-2.4) mg/dL Total Bilirubin 0.5 (0.2-1.0) mg/dL AST 29 (15-37) IU/L ALT 22 (14-63) IU/L Alkaline Phosphatase 81 (46-116) U/L Creatine Kinase 79 (26-308) U/L Troponin I < 0.050 (0.000-0.056) ng/mL C-Reactive Protein (0.00-0.90) mg/dL Total Protein 7.3 (6.4-8.2) g/dL Albumin 3.1 L (3.4-5.0) g/dL Globulin 4.2 H (2.6-4.0) g/dL Albumin/Globulin Ratio 0.7 L (0.9-1.6) TSH, Ultra Sensitive 0.75 (0.36-3.74) uIU/mL Urine Color Urine Appearance Urine pH (5.0-8.0) Ur Specific [place] (1.001-1.035) Urine Protein (NEGATIVE) mg/dL Urine Glucose (UA) (NEGATIVE) mg/dL Urine Ketones (NEGATIVE) mg/dL Urine Occult Blood (NEGATIVE) Urine Nitrite (NEGATIVE) Urine Bilirubin (NEGATIVE) Urine Urobilinogen (<2.0) EU/dL Ur Leukocyte Esterase (NEGATIVE) Urine RBC (0-2/HPF) Urine WBC (0-5/HPF) Ur Epithelial Cells (NONE-FEW) Urine Bacteria (NEGATIVE) Ethyl Alcohol < 3.0 mg/dL Influenza Type A RNA (NEGATIVE) RSV RNA (INAAT) (NEGATIVE) Influenza Type B RNA (NEGATIVE) SARS-CoV-2 RNA (ESTEFANÍA) (NEGATIVE) 05/20/21 05/20/21 Range/Units 13:38 13:52 WBC (4.0-11.0) K/uL RBC (4.50-5.90) M/uL Hgb (13.0-17.0) g/dL Hct (38.0-50.0) % MCV (80.0-98.0) fL MCH (27.0-32.0) pg MCHC (31.0-37.0) g/dL RDW Std Deviation (28.0-62.0) fl RDW Coeff of Giovanni (11.0-15.0) % Plt Count (150-400) K/uL MPV (7.40-12.00) fL Neut % (Auto) (48.0-80.0) % Lymph % (Auto) (16.0-40.0) % [place] % (Auto) (0.0-15.0) % Eos % (Auto) (0.0-7.0) % Baso % (Auto) (0.0-1.5) % Neut # (Auto) (1.4-5.7) K/uL Lymph # (Auto) (0.6-2.4) K/uL [place] # (Auto) (0.0-0.8) K/uL Eos # (Auto) (0.0-0.7) K/uL Baso # (Auto) (0.0-0.1) K/uL Nucleated RBC % /100WBC Nucleated RBCs # K/uL ESR (0-19) mm/hr INR Sodium (136-148) mmol/L Potassium (3.5-5.1) mmol/L Chloride (98-107) mmol/L Carbon Dioxide (21.0-32.0) mmol/L BUN (7.0-18.0) mg/dL Creatinine (0.8-1.3) mg/dL Est Cr Clr Drug Dosing mL/min Estimated GFR (MDRD) ml/min Glucose (74-106) mg/dL Lactic Acid (0.4-2.0) mmol/L Calcium (8.5-10.1) mg/dL Magnesium (1.8-2.4) mg/dL Total Bilirubin (0.2-1.0) mg/dL AST (15-37) IU/L ALT (14-63) IU/L Alkaline Phosphatase (46-116) U/L Creatine Kinase (26-308) U/L Troponin I (0.000-0.056) ng/mL C-Reactive Protein 7.90 H (0.00-0.90) mg/dL Total Protein (6.4-8.2) g/dL Albumin (3.4-5.0) g/dL Globulin (2.6-4.0) g/dL Albumin/Globulin Ratio (0.9-1.6) TSH, Ultra Sensitive (0.36-3.74) uIU/mL Urine Color YELLOW Urine Appearance HAZY Urine pH 6.0 (5.0-8.0) Ur Specific [place] 1.020 (1.001-1.035) Urine Protein TRACE H (NEGATIVE) mg/dL Urine Glucose (UA) NEGATIVE (NEGATIVE) mg/dL Urine Ketones NEGATIVE (NEGATIVE) mg/dL Urine Occult Blood TRACE-INTACT H (NEGATIVE) Urine Nitrite NEGATIVE (NEGATIVE) Urine Bilirubin SMALL H (NEGATIVE) Urine Urobilinogen 0.2 (<2.0) EU/dL Ur Leukocyte Esterase NEGATIVE (NEGATIVE) Urine RBC 0-2 (0-2/HPF) Urine WBC 0-1 (0-5/HPF) Ur Epithelial Cells RARE (NONE-FEW) Urine Bacteria FEW (NEGATIVE) Ethyl Alcohol mg/dL Influenza Type A RNA (NEGATIVE) RSV RNA (INAAT) (NEGATIVE) Influenza Type B RNA (NEGATIVE) SARS-CoV-2 RNA (ESTEFANÍA) (NEGATIVE) Med Orders - Current: Current Medications Albuterol/Ipratropium (Albuterol/Ipratropium 4 Gm Inhalation [place]) 1 gm INH Q6H PRN PRN Reason: Dyspnea Last Admin: 05/21/21 04:33 Dose: 1 puff Documented by: Allopurinol (Allopurinol 300 Mg Tab) 300 mg PO DAILY [facility] Atorvastatin Calcium (Atorvastatin 10 Mg Tab) 10 mg PO BEDTIME [facility] Last Admin: 05/20/21 21:15 Dose: 10 mg Documented by: Benzonatate (Benzonatate 100 Mg Cap) 100 mg PO Q6H PRN PRN Reason: Cough Last Admin: 05/21/21 04:33 Dose: 100 mg Documented by: Calcium Carbonate/Glycine (Calcium Carbonate 500 Mg Tab.Chew) 1,000 mg PO Q8HR PRN PRN Reason: Indigestion Clopidogrel Bisulfate (Clopidogrel 75 Mg Tab) 75 mg PO DAILY [facility] Dexamethasone (Dexamethasone 4 Mg Tab) 6 mg PO Q24H [facility] Enoxaparin Sodium (Enoxaparin 40 Mg/0.4 Ml Syringe) 40 mg SUBCUT Q24H [facility] Last Admin: 05/20/21 18:43 Dose: 40 mg Documented by: Gemfibrozil (Gemfibrozil 600 Mg Tab) 600 mg PO BID [facility] Last Admin: 05/20/21 21:15 Dose: 600 mg Documented by: Remdesivir 100 mg/ Sodium (Chloride) 100 mls @ 100 mls/hr IV Q24H [facility] Stop: 05/24/21 17:29 Metoprolol Succinate (Metoprolol Succinate 50 Mg Tab.Er) 75 mg PO DAILY [facility] Moexipril HCl (Moexipril 15 Mg Tab) 7.5 mg PO ACBREAKFAST [facility] Multivitamins/Minerals/Vitamin C (Multivitamin Tab) 1 tab PO DAILY [facility] Tamsulosin HCl (Tamsulosin 0.4 Mg Cap.Er) 0.8 mg PO BEDTIME [facility] Last Admin: 05/20/21 21:15 Dose: 0.8 mg Documented by: Discontinued Medications Aspirin (Aspirin 81 Mg Tab.Chew) 324 mg PO ONETIME ONE Stop: 05/20/21 13:21 Last Admin: 05/20/21 14:07 Dose: 324 mg Documented by: Dexamethasone (Dexamethasone 4 Mg Tab) 6 mg PO ONETIME ONE Stop: 05/20/21 15:35 Last Admin: 05/20/21 15:51 Dose: 6 mg Documented by: Magnesium Sulfate 2 gm/ Premix 50 mls @ 12.5 mls/hr IV ONETIME ONE Stop: 05/20/21 18:23 Last Admin: 05/20/21 14:47 Dose: 12.5 mls/hr Documented by: Remdesivir 200 mg/ Sodium (Chloride) 250 mls @ 250 mls/hr IV ONETIME ONE Stop: 05/20/21 15:36 Last Admin: 05/20/21 16:26 Dose: 250 mls/hr Documented by: - Exam General: Alert, Oriented Neck: Supple Lungs: Clear to Auscultation, Normal Respiratory Effort Cardiovascular: Regular Rate, Regular Rhythm GI/Abdominal Exam: Normal Bowel Sounds, Soft, Non-Tender Extremities: Non-Tender, No Pedal Edema Skin: Warm, Dry, Intact Neurological: No New Focal Deficit - Patient Data Lab Results Last 24 hrs: Laboratory Results - last 24 hr 05/20/21 05/20/21 05/20/21 Range/Units 13:30 13:38 13:38 WBC 4.56 (4.0-11.0) K/uL RBC 3.87 L (4.50-5.90) M/uL Hgb 13.2 (13.0-17.0) g/dL Hct 38.4 (38.0-50.0) % MCV 99.2 H (80.0-98.0) fL MCH 34.1 H (27.0-32.0) pg MCHC 34.4 (31.0-37.0) g/dL RDW Std Deviation 49.1 (28.0-62.0) fl RDW Coeff of Giovanni 14 (11.0-15.0) % Plt Count 146 L (150-400) K/uL MPV 10.90 (7.40-12.00) fL Neut % (Auto) 80.1 H (48.0-80.0) % Lymph % (Auto) 11.8 L (16.0-40.0) % [place] % (Auto) 7.9 (0.0-15.0) % Eos % (Auto) 0.0 (0.0-7.0) % Baso % (Auto) 0.2 (0.0-1.5) % Neut # (Auto) 3.7 (1.4-5.7) K/uL Lymph # (Auto) 0.5 L (0.6-2.4) K/uL [place] # (Auto) 0.4 (0.0-0.8) K/uL Eos # (Auto) 0.0 (0.0-0.7) K/uL Baso # (Auto) 0.0 (0.0-0.1) K/uL Nucleated RBC % 0.0 /100WBC Nucleated RBCs # 0 K/uL ESR (0-19) mm/hr INR 1.07 Sodium (136-148) mmol/L Potassium (3.5-5.1) mmol/L Chloride (98-107) mmol/L Carbon Dioxide (21.0-32.0) mmol/L BUN (7.0-18.0) mg/dL Creatinine (0.8-1.3) mg/dL Est Cr Clr Drug Dosing mL/min Estimated GFR (MDRD) ml/min Glucose (74-106) mg/dL Lactic Acid (0.4-2.0) mmol/L Calcium (8.5-10.1) mg/dL Magnesium (1.8-2.4) mg/dL Total Bilirubin (0.2-1.0) mg/dL AST (15-37) IU/L ALT (14-63) IU/L Alkaline Phosphatase (46-116) U/L Creatine Kinase (26-308) U/L Troponin I (0.000-0.056) ng/mL C-Reactive Protein (0.00-0.90) mg/dL Total Protein (6.4-8.2) g/dL Albumin (3.4-5.0) g/dL Globulin (2.6-4.0) g/dL Albumin/Globulin Ratio (0.9-1.6) TSH, Ultra Sensitive (0.36-3.74) uIU/mL Urine Color Urine Appearance Urine pH (5.0-8.0) Ur Specific [place] (1.001-1.035) Urine Protein (NEGATIVE) mg/dL Urine Glucose (UA) (NEGATIVE) mg/dL Urine Ketones (NEGATIVE) mg/dL Urine Occult Blood (NEGATIVE) Urine Nitrite (NEGATIVE) Urine Bilirubin (NEGATIVE) Urine Urobilinogen (<2.0) EU/dL Ur Leukocyte Esterase (NEGATIVE) Urine RBC (0-2/HPF) Urine WBC (0-5/HPF) Ur Epithelial Cells (NONE-FEW) Urine Bacteria (NEGATIVE) Ethyl Alcohol mg/dL Influenza Type A RNA NEGATIVE (NEGATIVE) RSV RNA (INAAT) NEGATIVE (NEGATIVE) Influenza Type B RNA NEGATIVE (NEGATIVE) SARS-CoV-2 RNA (ESTEFANÍA) POSITIVE H (NEGATIVE) 05/20/21 05/20/21 05/20/21 Range/Units 13:38 13:38 13:38 WBC (4.0-11.0) K/uL RBC (4.50-5.90) M/uL Hgb (13.0-17.0) g/dL Hct (38.0-50.0) % MCV (80.0-98.0) fL MCH (27.0-32.0) pg MCHC (31.0-37.0) g/dL RDW Std Deviation (28.0-62.0) fl RDW Coeff of [place] (11.0-15.0) % Plt Count (150-400) K/uL MPV (7.40-12.00) fL Neut % (Auto) (48.0-80.0) % Lymph % (Auto) (16.0-40.0) % [place] % (Auto) (0.0-15.0) % Eos % (Auto) (0.0-7.0) % Baso % (Auto) (0.0-1.5) % Neut # (Auto) (1.4-5.7) K/uL Lymph # (Auto) (0.6-2.4) K/uL [place] # (Auto) (0.0-0.8) K/uL Eos # (Auto) (0.0-0.7) K/uL Baso # (Auto) (0.0-0.1) K/uL Nucleated RBC % /100WBC Nucleated RBCs # K/uL ESR 37 H (0-19) mm/hr INR Sodium 133 L (136-148) mmol/L Potassium 4.5 (3.5-5.1) mmol/L Chloride 99 (98-107) mmol/L Carbon Dioxide 22.5 (21.0-32.0) mmol/L BUN 37 H (7.0-18.0) mg/dL Creatinine 2.2 H (0.8-1.3) mg/dL Est Cr Clr Drug Dosing 25.05 mL/min Estimated GFR (MDRD) 28.8 ml/min Glucose 113 H (74-106) mg/dL Lactic Acid 0.7 (0.4-2.0) mmol/L Calcium 8.7 (8.5-10.1) mg/dL Magnesium 1.7 L (1.8-2.4) mg/dL Total Bilirubin 0.5 (0.2-1.0) mg/dL AST 29 (15-37) IU/L ALT 22 (14-63) IU/L Alkaline Phosphatase 81 (46-116) U/L Creatine Kinase 79 (26-308) U/L Troponin I < 0.050 (0.000-0.056) ng/mL C-Reactive Protein (0.00-0.90) mg/dL Total Protein 7.3 (6.4-8.2) g/dL Albumin 3.1 L (3.4-5.0) g/dL Globulin 4.2 H (2.6-4.0) g/dL Albumin/Globulin Ratio 0.7 L (0.9-1.6) TSH, Ultra Sensitive 0.75 (0.36-3.74) uIU/mL Urine Color Urine Appearance Urine pH (5.0-8.0) Ur Specific [place] (1.001-1.035) Urine Protein (NEGATIVE) mg/dL Urine Glucose (UA) (NEGATIVE) mg/dL Urine Ketones (NEGATIVE) mg/dL Urine Occult Blood (NEGATIVE) Urine Nitrite (NEGATIVE) Urine Bilirubin (NEGATIVE) Urine Urobilinogen (<2.0) EU/dL Ur Leukocyte Esterase (NEGATIVE) Urine RBC (0-2/HPF) Urine WBC (0-5/HPF) Ur Epithelial Cells (NONE-FEW) Urine Bacteria (NEGATIVE) Ethyl Alcohol < 3.0 mg/dL Influenza Type A RNA (NEGATIVE) RSV RNA (INAAT) (NEGATIVE) Influenza Type B RNA (NEGATIVE) SARS-CoV-2 RNA (ESTEFANÍA) (NEGATIVE) 05/20/21 05/20/21 Range/Units 13:38 13:52 WBC (4.0-11.0) K/uL RBC (4.50-5.90) M/uL Hgb (13.0-17.0) g/dL Hct (38.0-50.0) % MCV (80.0-98.0) fL MCH (27.0-32.0) pg MCHC (31.0-37.0) g/dL RDW Std Deviation (28.0-62.0) fl RDW Coeff of [place] (11.0-15.0) % Plt Count (150-400) K/uL MPV (7.40-12.00) fL Neut % (Auto) (48.0-80.0) % Lymph % (Auto) (16.0-40.0) % [place] % (Auto) (0.0-15.0) % Eos % (Auto) (0.0-7.0) % Baso % (Auto) (0.0-1.5) % Neut # (Auto) (1.4-5.7) K/uL Lymph # (Auto) (0.6-2.4) K/uL [place] # (Auto) (0.0-0.8) K/uL Eos # (Auto) (0.0-0.7) K/uL Baso # (Auto) (0.0-0.1) K/uL Nucleated RBC % /100WBC Nucleated RBCs # K/uL ESR (0-19) mm/hr INR Sodium (136-148) mmol/L Potassium (3.5-5.1) mmol/L Chloride (98-107) mmol/L Carbon Dioxide (21.0-32.0) mmol/L BUN (7.0-18.0) mg/dL Creatinine (0.8-1.3) mg/dL Est Cr Clr Drug Dosing mL/min Estimated GFR (MDRD) ml/min Glucose (74-106) mg/dL Lactic Acid (0.4-2.0) mmol/L Calcium (8.5-10.1) mg/dL Magnesium (1.8-2.4) mg/dL Total Bilirubin (0.2-1.0) mg/dL AST (15-37) IU/L ALT (14-63) IU/L Alkaline Phosphatase (46-116) U/L Creatine Kinase (26-308) U/L Troponin I (0.000-0.056) ng/mL C-Reactive Protein 7.90 H (0.00-0.90) mg/dL Total Protein (6.4-8.2) g/dL Albumin (3.4-5.0) g/dL Globulin (2.6-4.0) g/dL Albumin/Globulin Ratio (0.9-1.6) TSH, Ultra Sensitive (0.36-3.74) uIU/mL Urine Color YELLOW Urine Appearance HAZY Urine pH 6.0 (5.0-8.0) Ur Specific [place] 1.020 (1.001-1.035) Urine Protein TRACE H (NEGATIVE) mg/dL Urine Glucose (UA) NEGATIVE (NEGATIVE) mg/dL Urine Ketones NEGATIVE (NEGATIVE) mg/dL Urine Occult Blood TRACE-INTACT H (NEGATIVE) Urine Nitrite NEGATIVE (NEGATIVE) Urine Bilirubin SMALL H (NEGATIVE) Urine Urobilinogen 0.2 (<2.0) EU/dL Ur Leukocyte Esterase NEGATIVE (NEGATIVE) Urine RBC 0-2 (0-2/HPF) Urine WBC 0-1 (0-5/HPF) Ur Epithelial Cells RARE (NONE-FEW) Urine Bacteria FEW (NEGATIVE) Ethyl Alcohol mg/dL Influenza Type A RNA (NEGATIVE) RSV RNA (INAAT) (NEGATIVE) Influenza Type B RNA (NEGATIVE) SARS-CoV-2 RNA (ESTEFANÍA) (NEGATIVE) Result Diagrams: 05/20/21 13:38 05/20/21 13:38 Sepsis Event Note - Evaluation Sepsis Screening Result: No Definite Risk - Focused Exam Vital Signs: Vital Signs Temp Pulse Resp BP Pulse Ox 05/21/21 04:00 36.3 C 70 19 131/66 92 L 05/20/21 23:29 36.3 C 73 20 144/68 H 92 L 05/20/21 20:01 36.6 C 68 20 141/63 H 93 L - Problem List & Annotations (1) COVID SNOMED Code(s): 678931522 Code(s): U07.1 - COVID-19 Status: Acute Current Visit: Yes (2) Hypoxia SNOMED Code(s): 747283723 Code(s): R09.02 - HYPOXEMIA Status: Acute Current Visit: Yes - Problem List Review Problem List Initiated/Reviewed/Updated: Yes - My Orders Last 24 Hours: My Active Orders 05/20/21 16:25 Antiembolic Devices [RC] PER UNIT ROUTINE Oxygen Therapy [RC] PRN VTE/DVT Education [RC] PER UNIT ROUTINE Sequential Compression Device [OM.PC] Per Unit Routine Resuscitation Status Routine 05/20/21 16:30 Enoxaparin [Lovenox] 40 mg SUBCUT Q24H 05/20/21 20:49 Albuterol/Ipratropium [Combivent Respimat] 1 gm INH Q6H PRN 05/20/21 20:50 RT Post Treatment Assessment [RC] Click to Edit RT Pre-Treatment Assessment [RC] Click to Edit Benzonatate [Tessalon Perles] 100 mg PO Q6H PRN 05/20/21 21:00 Tamsulosin [Flomax] 0.8 mg PO BEDTIME atorvaSTATin [Lipitor] 10 mg PO BEDTIME gemfibroziL [Lopid] 600 mg PO BID 05/21/21 04:18 Calcium Carbonate [Tums] 1,000 mg PO Q8HR PRN 05/21/21 06:37 CBC WITH AUTO DIFF [HEME] AM COMPREHENSIVE METABOLIC PN,CMP [CHEM] AM MAGNESIUM [CHEM] Routine 05/21/21 07:30 Moexipril [Univasc] 7.5 mg PO ACBREAKFAST 05/21/21 09:00 Clopidogrel [Plavix] 75 mg PO DAILY Metoprolol Succinate [Toprol XL] 75 mg PO DAILY Multivitamins [Tab-A-Amanuel] 1 tab PO DAILY allopurinoL [Zyloprim] 300 mg PO DAILY 05/21/21 16:30 Remdesivir 100 mg Sodium Chloride 0.9% [Normal Saline AdvBag] 100 ml IV Q24H dexAMETHasone 6 mg PO Q24H 05/22/21 05:11 CBC WITH AUTO DIFF [HEME] AM COMPREHENSIVE METABOLIC PN,CMP [CHEM] AM 05/23/21 05:11 CBC WITH AUTO DIFF [HEME] AM COMPREHENSIVE METABOLIC PN,CMP [CHEM] AM 05/24/21 05:11 CBC WITH AUTO DIFF [HEME] AM COMPREHENSIVE METABOLIC PN,CMP [CHEM] AM - Plan Plan:: 80 yo male admitted for COVID with hypoxia Hypoxia: on 1.5 L NC COVID: continue remdesivir and dexamethason lovenox for DVT prophylaxis
[2021-05-21] MEDS: Clopidogrel 75 MG Tab PO SCH (08:16)
[2021-05-21] MEDS: Allopurinol 300 MG Tab PO SCH (08:16)
[2021-05-21] MEDS: Multivitamin Tab PO SCH (08:16)
[2021-05-21] MEDS: Metoprolol Succinate 50 MG Tab.ER PO SCH (08:17)
[2021-05-21] MEDS: Gemfibrozil 600 MG Tab PO SCH ×2 (08:17→20:39)
[2021-05-21 08:21] LABS: POTASSIUM,K 4.2 mmol/L (3.5-5.1)
[2021-05-21] MEDS ORDERED: Dexamethasone 4 MG Tab PO SCH (16:30)
[2021-05-21] MEDS ORDERED: REMDESIVIR 100 MG in Sodium Chloride 0.9% 100 ML IV SCH (16:30)
[2021-05-21] MEDS: Enoxaparin 40 MG/0.4 ML Syringe SUBCUT SCH (16:37)
[2021-05-21] MEDS: atorvaSTATin 10 MG Tab PO SCH (20:39)
[2021-05-21] MEDS: Tamsulosin 0.4 MG Cap.ER PO SCH (20:39)
[2021-05-22 07:56] LABS: CARBON DIOXIDE,CO2 23.2 mmol/L (21.0-32.0); POTASSIUM,K 4.4 mmol/L (3.5-5.1)
[2021-05-22 08:23] VITALS: BP 146/78
[2021-05-22] MEDS: Clopidogrel 75 MG Tab PO SCH (08:26)
[2021-05-22] MEDS: Allopurinol 300 MG Tab PO SCH (08:26)
[2021-05-22] MEDS: Gemfibrozil 600 MG Tab PO SCH (08:27)
[2021-05-22] MEDS: Metoprolol Succinate 50 MG Tab.ER PO SCH (08:28)
[2021-05-22 08:29] VITALS: PULSE 75
[2021-05-22] MEDS: Multivitamin Tab PO SCH (08:29)
--- NOTE | 2021-05-22 10:27 | PCM.DCSUM1 ---
Discharge Summary - Discharge Data Discharge Date: 05/22/21 Discharge Disposition: Home, Self-Care 01 Condition: Good - Referral to Home Health Primary Care Physician: Aravind Carter MD - Discharge Diagnosis/Problem(s) (1) COVID SNOMED Code(s): 209742400 ICD Code: U07.1 - COVID-19 Status: Acute Current Visit: Yes (2) Hypoxia SNOMED Code(s): 905130291 ICD Code: R09.02 - HYPOXEMIA Status: Acute Current Visit: Yes - Patient Summary/Data Hospital Course: 80 yo male with pmh of CKD, HTN, carotid artery stenosis who presents with one week history of cough and shortness of breath. Patient has reported more fatigue and he fell at home. He reports receiving Ata and Ata vaccine in December. He is requiring 2 L NC to keep sats above 90%. He tested positive for COVID. CXR is clear. He was treatd with dexamethasone and remdesivir for two days. He was weaned off oxygen and symptoms have resolved. This morning he is dressed in his clothes pacing the room and requesting discharged. He was discharged home to have follow up with Dr. Carter. - Patient Instructions Diet: Regular Diet as Tolerated Activity: As Tolerated - Discharge Plan Prescriptions/Med Rec: Albuterol/Ipratropium [Combivent Respimat] 1 gm INH Q6H PRN #1 inhaler PRN Reason: Dyspnea Home Medications: Home Meds Allopurinol [Zyloprim] 300 mg PO DAILY 10/11/15 [History] Clopidogrel [Plavix] 75 mg PO DAILY 10/11/15 [History] Cyanocobalamin (Vitamin B-12) [Vitamin B-12] 250 mcg PO DAILY 10/11/15 [History] Dextran 70/Hypromellose [Artificial Tears] 1 drop OP DAILY 10/11/15 [History] Gemfibrozil 600 mg PO BID 10/11/15 [History] Moexipril [Univasc] 7.5 mg PO ACBREAKFAST 10/11/15 [History] Multivitamin [Multi-Vitamin Daily] 1 each PO DAILY 10/11/15 [History] Tamsulosin [Flomax] 2 tab PO BEDTIME 10/11/15 [History] atorvaSTATin [Lipitor] 10 mg PO BEDTIME 04/12/16 [History] Metoprolol Succinate [Toprol Xl] 75 mg PO DAILY 05/20/21 [History] Albuterol/Ipratropium [Combivent Respimat] 1 gm INH Q6H PRN #1 inhaler 05/22/21 [Rx] Patient Handouts: Hypoxia, COVID-19 Frequently Asked Questions, COVID-19, COVID-19 Vaccine Information, COVID-19: How to Protect Yourself and Others - [facility] Referrals: Aravind Carter MD [Primary Care Provider] - - Discharge Summary/Plan Comment DC Time >30 min.: No Total # of Minutes for Discharge Time: 10 - Patient Data Vitals - Most Recent: Last Vital Signs Temp 36.2 C 05/22/21 08:22 Pulse 75 05/22/21 08:28 Resp 16 05/22/21 08:22 BP 146/78 H 05/22/21 08:28 Pulse Ox 95 05/22/21 08:22 Weight - Most Recent: 82.236 kg I&O - Last 24 hours: Intake & Output 05/21/21 05/22/21 05/22/21 22:59 06:59 14:59 Intake Total 1210 1000 Output Total 825 725 Balance 385 275 Lab Results - Last 24 hrs: Laboratory Results - last 24 hr 05/22/21 05/22/21 Range/Units 05:39 05:39 WBC 6.50 (4.0-11.0) K/uL RBC 4.01 L (4.50-5.90) M/uL Hgb 13.5 (13.0-17.0) g/dL Hct 39.6 (38.0-50.0) % MCV 98.8 H (80.0-98.0) fL MCH 33.7 H (27.0-32.0) pg MCHC 34.1 (31.0-37.0) g/dL RDW Std Deviation 48.8 (28.0-62.0) fl RDW Coeff of Giovanni 14 (11.0-15.0) % Plt Count 191 (150-400) K/uL MPV 11.60 (7.40-12.00) fL Neut % (Auto) 88.1 H (48.0-80.0) % Lymph % (Auto) 7.1 L (16.0-40.0) % [place] % (Auto) 4.8 (0.0-15.0) % Eos % (Auto) 0.0 (0.0-7.0) % Baso % (Auto) 0.0 (0.0-1.5) % Neut # (Auto) 5.7 (1.4-5.7) K/uL Lymph # (Auto) 0.5 L (0.6-2.4) K/uL [place] # (Auto) 0.3 (0.0-0.8) K/uL Eos # (Auto) 0.0 (0.0-0.7) K/uL Baso # (Auto) 0.0 (0.0-0.1) K/uL Nucleated RBC % 0.0 /100WBC Nucleated RBCs # 0 K/uL Sodium 136 (136-148) mmol/L Potassium 4.4 (3.5-5.1) mmol/L Chloride 101 (98-107) mmol/L Carbon Dioxide 23.2 (21.0-32.0) mmol/L BUN 39 H (7.0-18.0) mg/dL Creatinine 1.6 H (0.8-1.3) mg/dL Est Cr Clr Drug Dosing 34.44 mL/min Estimated GFR (MDRD) 41.6 ml/min Glucose 112 H (74-106) mg/dL Calcium 8.7 (8.5-10.1) mg/dL Total Bilirubin 0.4 (0.2-1.0) mg/dL AST 30 (15-37) IU/L ALT 21 (14-63) IU/L Alkaline Phosphatase 72 (46-116) U/L Total Protein 7.3 (6.4-8.2) g/dL Albumin 2.9 L (3.4-5.0) g/dL Globulin 4.4 H (2.6-4.0) g/dL Albumin/Globulin Ratio 0.7 L (0.9-1.6) Med Orders - Current: Current Medications Albuterol/Ipratropium (Albuterol/Ipratropium 4 Gm Inhalation [place]) 1 gm INH Q6H PRN PRN Reason: Dyspnea Last Admin: 05/21/21 13:34 Dose: 1 puff Documented by: Allopurinol (Allopurinol 300 Mg Tab) 300 mg PO DAILY [facility] Last Admin: 05/22/21 08:26 Dose: 300 mg Documented by: Atorvastatin Calcium (Atorvastatin 10 Mg Tab) 10 mg PO BEDTIME [facility] Last Admin: 05/21/21 20:39 Dose: 10 mg Documented by: Benzonatate (Benzonatate 100 Mg Cap) 100 mg PO Q6H PRN PRN Reason: Cough Last Admin: 05/21/21 13:32 Dose: 100 mg Documented by: Calcium Carbonate/Glycine (Calcium Carbonate 500 Mg Tab.Chew) 1,000 mg PO Q8HR PRN PRN Reason: Indigestion Clopidogrel Bisulfate (Clopidogrel 75 Mg Tab) 75 mg PO DAILY [facility] Last Admin: 05/22/21 08:26 Dose: 75 mg Documented by: Dexamethasone (Dexamethasone 4 Mg Tab) 6 mg PO Q24H [facility] Last Admin: 05/21/21 16:37 Dose: 6 mg Documented by: Enoxaparin Sodium (Enoxaparin 40 Mg/0.4 Ml Syringe) 40 mg SUBCUT Q24H [facility] Last Admin: 05/21/21 16:37 Dose: 40 mg Documented by: Gemfibrozil (Gemfibrozil 600 Mg Tab) 600 mg PO BID [facility] Last Admin: 05/22/21 08:27 Dose: 600 mg Documented by: Remdesivir 100 mg/ Sodium (Chloride) 100 mls @ 100 mls/hr IV Q24H [facility] Stop: 05/24/21 17:29 Last Admin: 05/21/21 16:37 Dose: 100 mls/hr Documented by: Metoprolol Succinate (Metoprolol Succinate 50 Mg Tab.Er) 75 mg PO DAILY [facility] Last Admin: 05/22/21 08:28 Dose: 75 mg Documented by: Moexipril HCl (Moexipril 15 Mg Tab) 7.5 mg PO ACBREAKFAST [facility] Last Admin: 05/22/21 07:00 Dose: 7.5 mg Documented by: Multivitamins/Minerals/Vitamin C (Multivitamin Tab) 1 tab PO DAILY [facility] Last Admin: 05/22/21 08:29 Dose: Not Given Documented by: Tamsulosin HCl (Tamsulosin 0.4 Mg Cap.Er) 0.8 mg PO BEDTIME [facility] Last Admin: 05/21/21 20:39 Dose: 0.8 mg Documented by: Discontinued Medications Aspirin (Aspirin 81 Mg Tab.Chew) 324 mg PO ONETIME ONE Stop: 05/20/21 13:21 Last Admin: 05/20/21 14:07 Dose: 324 mg Documented by: Dexamethasone (Dexamethasone 4 Mg Tab) 6 mg PO ONETIME ONE Stop: 05/20/21 15:35 Last Admin: 05/20/21 15:51 Dose: 6 mg Documented by: Magnesium Sulfate 2 gm/ Premix 50 mls @ 12.5 mls/hr IV ONETIME ONE Stop: 05/20/21 18:23 Last Admin: 05/20/21 14:47 Dose: 12.5 mls/hr Documented by: Remdesivir 200 mg/ Sodium (Chloride) 250 mls @ 250 mls/hr IV ONETIME ONE Stop: 05/20/21 15:36 Last Admin: 05/20/21 16:26 Dose: 250 mls/hr Documented by:
== END 2021-05-22 11:05 | disposition home or self-care (01) | DRG 179 ==
LOC: MW.ED 13:10 → MW.MS 15:50
PROVIDERS: ADMIT Internal Medicine; ATTEND Internal Medicine
PROC: XW033E5 Introduction of Remdesivir Anti-infective into Peripheral Vein, Percutaneous Approach, New Technology Group 5 (ICD-10-PCS; principal; 2021-05-20)
PROC: 3E0DX3Z Introduction of Anti-inflammatory into Mouth and Pharynx, External Approach (ICD-10-PCS; 2021-05-20)
DX: U07.1 COVID-19 (principal); J18.9 Pneumonia, unspecified organism; I26.99 Other pulmonary embolism without acute cor pulmonale; I24.9 Acute ischemic heart disease, unspecified; I12.9 Hypertensive chronic kidney disease with stage 1 through stage 4 chronic kidney disease, or unspecified chronic kidney disease; I10 Essential (primary) hypertension; N18.9 Chronic kidney disease, unspecified; E78.00 Pure hypercholesterolemia, unspecified; K21.9 Gastro-esophageal reflux disease without esophagitis; W18.30XA Fall on same level, unspecified, initial encounter; Z79.02 Long term (current) use of antithrombotics/antiplatelets; M54.9 Dorsalgia, unspecified; G89.29 Other chronic pain; R09.02 Hypoxemia; Z79.82 Long term (current) use of aspirin; Z79.899 Other long term (current) drug therapy; Z90.49 Acquired absence of other specified parts of digestive tract; Z98.49 Cataract extraction status, unspecified eye
CPT/HCPCS: 0241U; 36415; 70450; 71045; 80053; 80307; 81001; 82550; 83605; 83735; 84443; 84484; 85025; 85610; 85652; 86140; 93005; A9270-GY; J1650; J3475; J7050; J8540

== ENCOUNTER 2022-05-27 13:08 | Emergency (ER) | payer MEDICARE, BC ==
[2022-05-27] MEDS ORDERED: Orphenadrine 60 MG/2 ML Inj IM ONE (14:47)
[2022-05-27] MEDS ORDERED: Ketorolac 30 MG/ML SDV IM ONE (14:47)
[2022-05-27] MEDS ORDERED: traMADol 50 MG Tab PO ONE (16:52)
[2022-05-27] MEDS ORDERED: Cyclobenzaprine 10 MG Tab PO ONE (16:52)
[2022-05-27 17:12] VITALS: BP 121/56; PULSE 107
== END 2022-05-27 17:11 | disposition home or self-care (01) ==
LOC: MW.ED 13:08
DX: S13.4XXA Sprain of ligaments of cervical spine, initial encounter (principal); S16.1XXA Strain of muscle, fascia and tendon at neck level, initial encounter; M48.32 Traumatic spondylopathy, cervical region; E78.00 Pure hypercholesterolemia, unspecified; I12.9 Hypertensive chronic kidney disease with stage 1 through stage 4 chronic kidney disease, or unspecified chronic kidney disease; N18.9 Chronic kidney disease, unspecified; N40.0 Benign prostatic hyperplasia without lower urinary tract symptoms; Z79.02 Long term (current) use of antithrombotics/antiplatelets; Z79.899 Other long term (current) drug therapy; X50.0XXA Overexertion from strenuous movement or load, initial encounter
CPT/HCPCS: 72125; 96372; 99283; J1885; J2360